=== PATIENT | male | born 1975 | race Hispanic/Latino ===

== ENCOUNTER 2016-11-05 11:55 | Emergency (ER) | payer OTHER ==
[2016-11-05] MEDS ORDERED: Calcium Gluconate 4.65 mEq/10 ml Inj ONE (11:56)
[2016-11-05] MEDS ORDERED: Sodium Bicarbonate (8.4%) 50 Meq Syringe ONE (11:56)
--- NOTE | 2016-11-05 12:20 | C.PDOC ---
History Of Present Illness Patient BIBA for witnessed cardiac arrest in the field, while shopping at [employer]. Patient apparently began to have chest pain, then collapsed, cystander began CPR. When EMS arrived, patient noted to be in V fib, shocked once. Patient intubated and given epi x 5 in the field. 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 Patient arrives to ED pulseless, intubated with chest compressions in progress. Time Seen by Provider: 11/05/16 11:59 Chief Complaint (Nursing): Cardiac Arrest History Per: EMS Reason For Code Blue: Full Arrest Circumstances: Brought To ED By EMS Arrest Witnessed By: By-stander CPR Initiated Prior To MD Arrival?: Yes Down-Time Before ACLS: Mins (10) Treatment Initiated Prior To MD Arrival: Yes: CPR, BVM Ventilations, Intubation , Defibrillation, IVF, ACLS Medication Initiation, IV Access Medications Given Prior To MD Arrival: Yes: Epinephrine - Initial Findings Mentation: Unresponsive Respirations: None (Assisted) Pulse: None Rhythm: Asystole Past Medical History Reviewed: Historical Data, Nursing Documentation, Vital Signs Vital Signs: Last Vital Signs Temp Pulse Resp BP Pulse Ox 70 L 11/05/16 12:50 Family History: States: Unknown Family Hx - Social History Hx Alcohol Use: No Hx Substance Use: No Review Of Systems Review Of Systems: ROS cannot be obtained secondary to pt's inabilty to answer questions. Physical Exam - Physical Exam Skin: Other (clammy and cool to the touch) Head: Atraumatic, Normacephalic Eye(s): bilateral: Other (pupils dilated and nonreactive B/L) Oral Mucosa: Moist Cardiovascular: Other (no rhythm ) Respiratory: Other (assisted ventilations, equal breath sounds B/L) Extremity: No Deformity Neurological/Psych: Other (unresponsive, GCS3) ED Course And Treatment - Laboratory Results Result Diagrams: 11/05/16 12:42 11/05/16 12:42 O2 Sat by Pulse Oximetry: 70 (BVM) Pulse Ox Interpretation: Abnormal Progress Note: Patient given epi x 4 , bicarb, calcium chloride. IV alteplase given for possible STEMI/PE. Multiple bedside echos done by me, no cardiac wall motion noted, no pericardial effusion/tamponade noted. 12:15- Time of called. Patient in persistent asystole, without pulse, no response to IV alteplase, bedside echo shows no cardiac wall motion. Family on their way to ER. 12:35pm- Patient's Rob in ED and aware of his . Disposition - Disposition Disposition: WITH WITHOUT AUTOPSY Disposition Time: 12:15 Condition: - Clinical Impression Clinical Impression: Cardiac arrest
[2016-11-05 12:24] VITALS: O2SAT 70
[2016-11-05 12:46] LABS: BASO # 0.1 K/uL (0.0-0.2); BASO % 0.8 % (0.0-2.0); EOS # 0.1 K/uL (0.0-0.7); EOS % 0.4 % (0.0-4.0); HEMATOCRIT 48.3 % (35.0-51.0); LYMPH # 4.3 K/uL (1.0-4.3); LYMPH % 30.1 % (20.0-40.0); MEAN CORPUSCULAR HEMOGLOBIN 30.4 pg (27.0-31.0); MEAN CORPUSCULAR HGB CONC 32.7 g/dL (33.0-37.0); MEAN PLATELET VOLUME 9.7 fL (7.2-11.7); MONO # 1.1 K/uL (0.0-0.8); MONO % 7.6 % (0.0-10.0); RED CELL DISTRIBUTION WIDTH 13.6 % (11.5-14.5); WHITE BLOOD COUNT 14.2 K/uL (4.8-10.8)
[2016-11-05 12:59] LABS: CHLORIDE 103 mmol/L (98-107); POTASSIUM 3.8 mmol/L (3.6-5.2); SODIUM 141 mmol/L (132-148)
[2016-11-05 13:02] LABS: ALB/GLOB RATIO 1.6 (1.0-2.1); ALKALINE PHOSPHATASE 51 U/L (38-126); ALT/SGPT 92 U/L (21-72); AST/SGOT 74 U/L (17-59); BILIRUBIN,TOTAL 0.8 mg/dL (0.2-1.3); BLOOD UREA NITROGEN 15 mg/dL (9-20); CARBON DIOXIDE 17 mmol/L (22-30); GFR AFRICAN-AMERICAN > 60; GLUCOSE,RANDOM 132 mg/dL (75-110); TOTAL PROTEIN 6.5 g/dL (6.3-8.3)
== END 2016-11-05 18:23 ==
LOC: C.ER 11:55
DX: I46.9 Cardiac arrest, cause unspecified (principal)
CPT/HCPCS: 80053; 82948; 85025; 99285; J0171; J0610